=== PATIENT | female | born 1945 | race Caucasian/White ===

== ENCOUNTER → 2016-03-08 | Outpatient (CLI) | payer MEDICARE, OTHER ==
[~2016-03-08] MED LIST: ACIP20TA19 PO; AMLO5TAB96 PO; BENA40TA PO; DOCU100T9 PO; GLUC10TA3 PO; LABE200T2 PO; LEVO75TA3 PO; METF-324 PO; PERC10TA27 PO; ZOLP10TA3 PO
[2016-03-08 13:12] LABS: AUTOMATED NEUTROPHIL # 3.3 TH/MM3 (1.8-7.7); BASOPHIL # 0.1 TH/MM3 (0-0.2); BASOPHIL % 1.1 % (0.0-2.0); EOSINOPHIL # 0.2 TH/MM3 (0-0.4); EOSINOPHIL % 3.3 % (0.0-4.0); HEMATOCRIT 39.8 % (35.0-46.0); HEMO FLAGS DIFF FINAL; LYMPH % 35.9 % (9.0-44.0); LYMPHOCYTE # 2.3 TH/MM3 (1.0-4.8); MEAN CELL VOLUME 83.3 FL (80.0-100.0); MEAN CORPUSCULAR HEMOGLOBIN 28.2 PG (27.0-34.0); MEAN CORPUSCULAR HGB CONC 33.8 % (32.0-36.0); MONO % 8.8 % (0.0-8.0); NEUT % 50.9 % (16.0-70.0); PLATELET COUNT 324 TH/MM3 (150-450); RED BLOOD COUNT 4.77 MIL/MM3 (4.00-5.30); RED CELL DISTRIBUTION WIDTH 13.8 % (11.6-17.2); WHITE BLOOD COUNT 6.5 TH/MM3 (4.0-11.0)
[2016-03-08 13:37] LABS: ANION GAP 5 MEQ/L (5-15); AST (GOT) 22 U/L (15-37); BICARBONATE 27.8 MEQ/L (21.0-32.0); BLOOD UREA NITROGEN 11 MG/DL (7-18); CHLORIDE 99 MEQ/L (98-107); GLOMERULAR FILTRATION RATE 72 ML/MIN (>89); GLUCOSE,FASTING 140 MG/DL (74-99); POTASSIUM 3.9 MEQ/L (3.5-5.1); SODIUM (NA) 132 MEQ/L (136-145)
[2016-03-08 13:48] LABS: ALKALINE PHOSPHATASE 134 U/L (45-117); ALT (GPT) 27 U/L (10-53); HDL CHOLESTEROL 77.6 MG/DL (40.0-60.0); LDL CHOLESTEROL 50 MG/DL (0-99); TOTAL BILIRUBIN ADULT 0.7 MG/DL (0.2-1.0)
[2016-03-08 15:56] LABS: HEMOGLOBIN A1a 1.5 %; HEMOGLOBIN A1b 1.9 %; HEMOGLOBIN Ao 83.3 %; HEMOGLOBIN LA1C 2.3 %; HEMOGLOBIN P3 3.9 %
== END ==
LOC: PLAB 10:04
PROVIDERS: ATTEND Family Medicine
DX: I10 Essential (primary) hypertension (principal); R79.89 Other specified abnormal findings of blood chemistry; E78.2 Mixed hyperlipidemia; E11.65 Type 2 diabetes mellitus with hyperglycemia; E03.9 Hypothyroidism, unspecified
CPT/HCPCS: 36415; 80053; 80061; 83036; 84443; 85025

== ENCOUNTER → 2016-04-05 | Outpatient (CLI) | payer MEDICARE, OTHER ==
[2016-04-05 10:22] LABS: POTASSIUM 4.1 MEQ/L (3.5-5.1)
[2016-04-05 10:26] LABS: BICARBONATE 26.9 MEQ/L (21.0-32.0)
== END ==
LOC: PLAB 08:41
PROVIDERS: ATTEND Family Medicine
DX: E87.1 Hypo-osmolality and hyponatremia (principal)
CPT/HCPCS: 36415; 80048